=== PATIENT | female | born 1960 | race Caucasian/White ===

== ENCOUNTER 2018-09-29 18:36 | Emergency (ER) | payer OTHER ==
[~2018-09-29] VITALS: Ht 172.7 cm; Wt 96.2 kg
[~2018-09-29 18:36] MED LIST: APAP500 MG; CIPRO750 MG; FLAGYL375 MG; OMEPRAZOLE20 MG
[2018-09-29] MEDS ORDERED: NAPROXEN500 MG (18:47)
[2018-09-29] MEDS ORDERED: ADRENOID CAPSU1 EACH (18:48)
[2018-09-30] MEDS ORDERED: FLAGYL500MG PO (01:47)
[2018-09-30] MEDS ORDERED: INTESTINEX680 M1 PO (01:47)
[2018-09-30] MEDS ORDERED: CIPRO500 MG PO (01:47)
[2018-09-30] MEDS ORDERED: KETO10TA2 PO (01:47)
== END 2018-09-30 02:02 | disposition home or self-care (01) ==
LOC: ER 18:36
DX: M54.5 Low back pain (principal); R10.2 Pelvic and perineal pain